=== PATIENT | female | born 1970 | race Hispanic/Latino ===

== ENCOUNTER 2017-10-02 20:04 | Emergency (ER) | payer OTHER ==
[2017-10-02] MEDS ORDERED: ASPIRIN 81 MG CHEWABLE TABLET ONE ×2 (20:55→21:10)
[2017-10-02] MEDS ORDERED: FENTANYL CITR 100 MCG/2 ML ONE ×2 (20:56→21:11)
[2017-10-02] MEDS ORDERED: ONDANSETRON 4 MG/2 ML VIAL ONE ×2 (20:56→21:11)
[2017-10-02 21:23] LABS: Absolute Lymphocytes (CBC) 2.5 K/uL (0.7-4.9); Absolute Monocytes 0.5 K/uL (0.1-1.3); Absolute Neutrophil 5.7 K/uL (1.8-8.0); Basophils % 1.3 % (0-1.3); Eosinophils % 0.7 % (0-4.4); Hematocrit 39.2 % (36.0-45.0); Lymphocytes % 28.1 % (15.3-44.8); MCH 29.5 pg (27.0-35.0); MPV 8.4 fL (7.6-11.3); Monocytes % 5.4 % (3.3-12.3); RBC Red Blood Cell Count 4.51 M/uL (3.86-4.86)
[2017-10-02 21:24] LABS: Protime INR 0.92
[2017-10-02 21:36] LABS: Bicarbonate 26 mEq/L (21-31); Glucose Level 102 mg/dL (65-120); Potassium 3.8 mEq/L (3.6-5.0); Sodium Level 136 mEq/L (135-145)
[2017-10-02 21:42] LABS: ALT/SGPT 29 IU/L (10-60); AST/SGOT 30 IU/L (10-42); Albumin 3.7 g/dL (3.2-5.5); Alkaline Phosphatase 111 IU/L (42-121); BUN Blood Urea Nitrogen 10 mg/dL (6-20); Bilirubin Direct 0.1 mg/dL (0-0.2); Bilirubin Total < 0.2 mg/dL (0.3-1.2); Creatine Phosphokinase 64 IU/L (22-269); Magnesium 1.6 mg/dL (1.8-2.5); Protein, Total 7.5 g/dL (6.0-8.3)
--- NOTE | 2017-10-02 22:03 | RAD REPORT ---
EXAM DESCRIPTION: Zay Single View10/02/2017 8:53 pm CLINICAL HISTORY: Chest pain COMPARISON: 2016 FINDINGS: The lungs appear clear of acute infiltrate. The heart is normal size IMPRESSION: No acute abnormalities displayed
[2017-10-02] MEDS ORDERED: Magnesium Sulfate 2gm IVPB 2 G/50 ML BAG IV ONE (23:04)
[2017-10-02 23:26] LABS: Urine Blood NEGATIVE (NEG); Urine Glucose NEGATIVE (NEG); Urine Protein NEGATIVE (NEG); Urine pH 6.5 (5.0-7.0)
--- NOTE | 2017-10-02 23:29 | ER ---
Nurse's Notes [facility] Name: Stacy He Age: 47 yrs Sex: Female : 1970 Arrival Date: 10/02/2017 Time: 20:09 Bed 17 Private MD: Albert Blum H Diagnosis: Chest pain, unspecified Presentation: 10/02 20:16 Presenting complaint: Patient states: chest pain for 4-5 days, left arm and leg pain la1 for one day. Transition of care: patient was not received from another setting of care. Onset of symptoms was October 02, 2017. Initial Sepsis Screen: Does the patient meet any 2 criteria? No. Patient's initial sepsis screen is negative. Does the patient have a suspected source of infection? No. Patient's initial sepsis screen is negative. Care prior to arrival: None. 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 - Social history:: Smoking status: Patient/guardian denies using tobacco. Screenin:30 Abuse screen: Denies threats or abuse. Nutritional screening: No deficits noted. bb Tuberculosis screening: No symptoms or risk factors identified. Fall Risk None identified. Assessment: 20:30 General: Appears in no apparent distress. Behavior is calm, cooperative. Pain: bb Complains of pain in chest. Neuro: Level of Consciousness is awake, alert, obeys commands, Oriented to person, place, time, situation, Speech is normal, Facial symmetry appears normal. Cardiovascular: Heart tones S1 S2 present Capillary refill < 3 seconds Patient's skin is warm and dry. Pulses are all present. Edema is absent. Rhythm is sinus tachycardia. Respiratory: Airway is patent Respiratory effort is even, unlabored, Respiratory pattern is regular, Breath sounds are clear bilaterally. GI: No deficits noted. No signs and/or symptoms were reported involving the gastrointestinal system. Derm: Skin is pink, warm \T\ dry. Musculoskeletal: Circulation, motion, and sensation intact. 21:19 Reassessment: Patient and/or family updated on plan of care and expected duration. Pain bb level reassessed. Patient is alert, oriented x 3, equal unlabored respirations, skin warm/dry/pink. pt awaiting diagnostic results, family at bedside. 23:11 Reassessment: Patient appears in no apparent distress at this time. Patient and/or aa1 family updated on plan of care and expected duration. Pain level reassessed. Patient is alert, oriented x 3, equal unlabored respirations, skin warm/dry/pink. Awaiting repeat troponin results. IV mag infusing. 23:36 Reassessment: Jorden OROZCO at bedside for discussion of findings and recommendations bb pt to be discharged home and will keep appointment she had scheduled with cardiology tomorrow. Pt verbalized understanding of and agrees to plan of care awaiting discharge for completion of IV medication pt requesting pain medication see JUL. 10/03 00:08 Reassessment: Patient and/or family updated on plan of care and expected duration. Pain bb level reassessed. Patient is alert, oriented x 3, equal unlabored respirations, skin warm/dry/pink. pt states pain has improved now 6/10 verbalized understanding of and agrees to plan of care discharge instructions given pt ambulated with steady gait to exit accompanied by family. Vital Signs: 10/02 20:18 BP 136 / 96; Pulse 111; Resp 19; Temp 98.4(TE); Pulse Ox 100% on R/A; Weight 81.65 kg; la1 Height 4 ft. 10 in. (147.32 cm); 21:20 BP 126 / 93; Pulse 107; Resp 16 S; Pulse Ox 97% on R/A; bb 22:15 BP 130 / 99; Pulse 108; Resp 18; Pulse Ox 97% on R/A; aa1 23:11 BP 136 / 94; Pulse 101; Resp 16; Pulse Ox 98% on R/A; aa1 10/03 00:09 BP 122 / 91; Pulse 102; Resp 16 S; Temp 98.6(O); Pulse Ox 99% on R/A; Pain 6/10; bb 10/02 20:18 Body Mass Index 37.62 (81.65 kg, 147.32 cm) or1 ED Course: 10/02 20:09 Patient arrived in ED. es 20:09 Albert Blum DO is Private Physician. es 20:17 Triage completed. la1 20:18 Arm band placed on left wrist. la1 20:22 Ayush Davis PA is PHCP. jr8 20:22 Shailesh Odell MD is Attending Physician. jr8 20:30 Patient has correct armband on for positive identification. Bed in low position. Call bb light in reach. Side rails up X 1. Adult w/ patient. classroom monitor on. Pulse ox on. NIBP on. Warm blanket given. 20:52 Luz Coy, ALAN is Primary Nurse. bb 20:53 XRAY Chest (1 view) In Process Unspecified. EDMS 21:00 Initial lab(s) drawn, by me, sent to lab. EKG done, by ED staff, reviewed by Shailesh lockett MD. Inserted saline lock: 20 gauge in right antecubital area, using aseptic technique. Blood collected. 21:59 PHCP role handed off by Ayush Davis PA cp 21:59 Jorden Dietrich PA is PHCP. cp 23:01 Troponin (emerg Dept Use Only) Sent. mg2 23:28 Osito Norton MD is Referral Physician. cp 10/03 00:10 No provider procedures requiring assistance completed. IV discontinued, intact, bb bleeding controlled, No redness/swelling at site. Pressure dressing applied. Administered Medications: 10/02 21:07 Drug: Aspirin Chewable Tablet 324 mg Route: PO; bb 23:38 Follow up: Response: No adverse reaction bb 21:07 Drug: fentaNYL (PF) 50 mcg Route: IVP; Site: right antecubital; bb 23:38 Follow up: Response: No adverse reaction bb 21:07 Drug: Zofran 4 mg Route: IVP; Site: right antecubital; bb 23:39 Follow up: Response: No adverse reaction bb 23:06 Drug: Magnesium Sulfate 2 grams Route: IVPB; Infused Over: 2 hrs; Site: right aa1 antecubital; 10/03 00:00 Follow up: IV Status: Completed infusion; IV Intake: 100ml bb 10/02 23:49 Drug: TORadol 30 mg Route: IVP; Site: right antecubital; bb 10/03 00:09 Follow up: Response: Pain is decreased bb Intake: 00:00 IV: 100ml; Total: 100ml. bb Outcome: 10/02 23:28 Discharge ordered by . dayna 10/03 00:10 Discharged to home ambulatory, with family. bb Condition: stable Discharge instructions given to patient, Instructed on discharge instructions, follow up and referral plans. Demonstrated understanding of instructions, follow-up care. 00:10 Patient left the ED. bb Signatures: Dispatcher [employer] Sandra Troy RN RN aa1 Su Castro Brenda, RN RN bb Ayush Davis PA PA jr8 Dae López RN RN la1 Jorden Dietrich PA PA cp [place], Michele RN RN mg2
--- NOTE | 2017-10-02 23:29 | EDPHYS ---
Physician Documentation [facility] Name: Stacy He Age: 47 yrs Sex: Female : 1970 Arrival Date: 10/02/2017 Time: 20:09 Bed 17 Private MD: Albert Blum H ED Physician Shailesh Odell HPI: 10/02 21:08 This 47 yrs old Female presents to ER via Wheelchair with complaints of PAIN jr8 ON LT SIDE OF BODY. 21:08 The patient or guardian reports chest pain that is located primarily in the substernal jr8 area. Onset: acutely, today. The pain radiates to the left arm. Associated signs and symptoms: The patient has no apparent associated signs or symptoms. The chest pain is described as a heaviness. Severity of pain: At its worst the pain was mild in the emergency department the pain is unchanged. The patient has not experienced similar symptoms in the past. The patient has not recently seen a physician. Patient stated that she has had chest pain on/off for past few days. Had usually went away but today did not and had radiation down left arm. Also complained of left leg pain. History of fibromyalgia . 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 - Social history:: Smoking status: Patient/guardian denies using tobacco. ROS: 21:08 Eyes: Negative for injury, pain, redness, and discharge, ENT: Negative for injury, jr8 pain, and discharge, Neck: Negative for injury, pain, and swelling, Respiratory: Negative for shortness of breath, cough, wheezing, and pleuritic chest pain, Abdomen/GI: Negative for abdominal pain, nausea, vomiting, diarrhea, and constipation, Back: Negative for injury and pain, MS/Extremity: Negative for injury and deformity, Skin: Negative for injury, rash, and discoloration, Neuro: Negative for headache, weakness, numbness, tingling, and seizure. 21:08 Cardiovascular: Positive for chest pain, Negative for edema, orthopnea, palpitations, paroxysmal nocturnal dyspnea. Exam: 21:08 Eyes: Pupils equal round and reactive to light, extra-ocular motions intact. Lids and jr8 lashes normal. Conjunctiva and sclera are non-icteric and not injected. Cornea within normal limits. Periorbital areas with no swelling, redness, or edema. ENT: Nares patent. No nasal discharge, no septal abnormalities noted. Tympanic membranes are normal and external auditory canals are clear. Oropharynx with no redness, swelling, or masses, exudates, or evidence of obstruction, uvula midline. Mucous membranes moist. Neck: Trachea midline, no thyromegaly or masses palpated, and no cervical lymphadenopathy. Supple, full range of motion without nuchal rigidity, or vertebral point tenderness. No Meningismus. Cardiovascular: Regular rate and rhythm with a normal S1 and S2. No gallops, murmurs, or rubs. Normal PMI, no JVD. No pulse deficits. Respiratory: Lungs have equal breath sounds bilaterally, clear to auscultation and percussion. No rales, rhonchi or wheezes noted. No increased work of breathing, no retractions or nasal flaring. Abdomen/GI: Soft, non-tender, with normal bowel sounds. No distension or tympany. No guarding or rebound. No evidence of tenderness throughout. Back: No spinal tenderness. No costovertebral tenderness. Full range of motion. Skin: Warm, dry with normal turgor. Normal color with no rashes, no lesions, and no evidence of cellulitis. MS/ Extremity: Pulses equal, no cyanosis. Neurovascular intact. Full, normal range of motion. Neuro: Awake and alert, GCS 15, oriented to person, place, time, and situation. Cranial nerves II-XII grossly intact. Motor strength 5/5 in all extremities. Sensory grossly intact. Cerebellar exam normal. Normal gait. Vital Signs: 20:18 BP 136 / 96; Pulse 111; Resp 19; Temp 98.4(TE); Pulse Ox 100% on R/A; Weight 81.65 kg; la1 Height 4 ft. 10 in. (147.32 cm); 21:20 BP 126 / 93; Pulse 107; Resp 16 S; Pulse Ox 97% on R/A; bb 22:15 BP 130 / 99; Pulse 108; Resp 18; Pulse Ox 97% on R/A; aa1 23:11 BP 136 / 94; Pulse 101; Resp 16; Pulse Ox 98% on R/A; aa1 10/03 00:09 BP 122 / 91; Pulse 102; Resp 16 S; Temp 98.6(O); Pulse Ox 99% on R/A; Pain 6/10; bb 10/02 20:18 Body Mass Index 37.62 (81.65 kg, 147.32 cm) la1 MDM: 10/02 20:22 Patient medically screened. rust 23:27 Data reviewed: vital signs, nurses notes, lab test result(s), EKG, radiologic studies, cp plain films, and as a result, I will discharge patient. 10/02 20:30 Order name: Basic Metabolic Panel; Complete Time: 21:47 rust 10/02 20:30 Order name: BNP; Complete Time: 21:58 rust 10/02 20:30 Order name: CBC with Diff; Complete Time: 21:24 rust 10/02 20:30 Order name: CPK; Complete Time: 21:47 rust 10/02 20:30 Order name: LFT's; Complete Time: 21:47 rust 10/02 20:30 Order name: Magnesium; Complete Time: 21:47 rust 10/02 20:30 Order name: PT-INR; Complete Time: 21:30 rust 10/02 20:30 Order name: Troponin (emerg Dept Use Only); Complete Time: 21:47 rust 10/02 20:30 Order name: XRAY Chest (1 view); Complete Time: 23:27 rust 10/02 22:48 Order name: Troponin (emerg Dept Use Only) mg2 10/02 22:49 Order name: Troponin (Emerg Dept Use Only); Complete Time: 23:27 EDMS 10/02 23:27 Interpretation: Reviewed. cp 10/02 23:19 Order name: Urine Dipstick--Ancillary (enter results) [facility] 10/02 23:19 Order name: Urine --Ancillary (enter results) [facility] 10/02 20:30 Order name: EKG; Complete Time: 20:31 rust 10/02 20:30 Order name: Cardiac monitoring; Complete Time: 21:21 rust 10/02 20:30 Order name: EKG - Nurse/Tech; Complete Time: 20:52 jr10/02 20:30 Order name: IV Saline Lock; Complete Time: :10/02 20:30 Order name: Labs collected and sent; Complete Time: : 10/02 20:30 Order name: O2 Per Protocol; Complete Time: :10/02 20:30 Order name: O2 Sat Monitoring; Complete Time: :10/02 20:30 Order name: Urine Dipstick-Ancillary (obtain specimen); Complete Time: : 10/02 21:53 Order name: Misc. Order: repeat trop at 2230; Complete Time: 23: la Administered Medications: 21: Drug: Aspirin Chewable Tablet 324 mg Route: PO; bb 23:38 Follow up: Response: No adverse reaction : Drug: fentaNYL (PF) 50 mcg Route: IVP; Site: right antecubital; bb 23:38 Follow up: Response: No adverse reaction :07 Drug: Zofran 4 mg Route: IVP; Site: right antecubital; bb 23:39 Follow up: Response: No adverse reaction 23:06 Drug: Magnesium Sulfate 2 grams Route: IVPB; Infused Over: 2 hrs; Site: right aa1 antecubital; 10/03 00:00 Follow up: IV Status: Completed infusion; IV Intake: 100ml 10/02 23:49 Drug: TORadol 30 mg Route: IVP; Site: right antecubital; 10/03 00:09 Follow up: Response: Pain is decreased Disposition: 06:23 Co-signature as Attending Physician, Shailesh Odell MD. [email or web address] Disposition: 10/02/17 23:28 Discharged to Home. Impression: Chest pain, unspecified. - Condition is Stable. - Discharge Instructions: Nonspecific Chest Pain, Aspirin and Your Heart. - Medication Reconciliation Form, Thank You Letter, Antibiotic Education, Prescription Opioid Use form. - Follow up: Osito Norton MD; When: 1 - 2 days; Reason: Recheck today's complaints. - Problem is new. - Symptoms have improved. Signatures: Dispatcher [employer] EDMS Sandra Galloway RN RN aa1 Shailesh Odell MD MD pkLuz Ellington RN RN bb Ayush Davis, ERNESTO OROZCO 8 Dae López RN RN la1 Jorden Dietrich PA PA cp Corrections: (The following items were deleted from the chart) 00:10 10/02 23:28 10/02/2017 23:28 Discharged to Home. Impression: Chest pain, unspecified. bb Condition is Stable. Forms are Medication Reconciliation Form, Thank You Letter, Antibiotic Education, Prescription Opioid Use. Follow up: Osito Norton; When: 1 - 2 days; Reason: Recheck today's complaints. Problem is new. Symptoms have improved. cp
[2017-10-02] MEDS ORDERED: KETOROLAC 30 MG/ML INJ ONE (23:46)
[2017-10-03 00:32] VITALS: BP 122/91; TEMP 98.6; O2SAT 99
--- NOTE | 2017-10-03 07:59 | EKG ---
Test Date: 2017-10-02 Test Time: 20:45:07 Phlebotomy Instructor: SWAPNA MEASUREMENT RESULTS: Intervals: Rate: 109 W[place]: 160 QRSD: 84 QT: 338 QTc: 455 [place]: P: 30 WY: 160 QRS: -19 T: 32 INTERPRETIVE STATEMENTS: Sinus tachycardia Minimal voltage criteria for LVH, may be normal variant Borderline ECG Compared to ECG 05/21/2015 06:35:49 Sinus rhythm no longer present Prolonged QT interval no longer present Electronically Signed On 10-03-17 07:58:45 CDT by Osito Norton
== END 2017-10-03 00:10 | disposition home or self-care (01) ==
LOC: ER 20:04
DX: R07.9 Chest pain, unspecified (principal); Z88.8 Allergy status to other drugs, medicaments and biological substances
CPT/HCPCS: 36415; 71045; 80048; 80076; 81003; 81025; 82550; 83735; 83880; 84484; 85025; 85610; 93005; 96365; 96375; 99284; J2405; J3010; J3475